=== PATIENT | male | born 1990 | race Caucasian/White ===

== ENCOUNTER 2020-10-02 00:53 | Emergency (ER) | payer OTHER ==
[2020-10-02] MEDS ORDERED: Ibuprofen 200 MG TAB ONE (01:31)
== END 2020-10-02 01:38 | disposition home or self-care (01) ==
LOC: CSHERS 00:53
DX: R51.9 Headache, unspecified (principal); M79.10 Myalgia, unspecified site; T50.B95A Adverse effect of other viral vaccines, initial encounter
CPT/HCPCS: 99283